=== PATIENT | female | born 1970 | race Caucasian/White ===

== ENCOUNTER 2016-05-30 22:05 | Emergency (ER) | payer OTHER ==
[~2016-05-30] VITALS: Ht 170.2 cm; Wt 104.3 kg
--- NOTE | 2016-05-31 00:04 | ED GENERAL ADULT ---
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 Source: patient Exam Limitations: no limitations Vital Signs & Intake/Output Vital Signs & Intake/Output Vital Signs Date Time Temp Pulse Resp B/P Pulse O2 O2 Flow FiO2 Ox Delivery Rate 05/31 0210 96.0 92 20 151/77 98 Room Air 05/31 0054 100 05/30 2353 96.7 96 20 127/68 100 Room Air 05/30 2215 96.7 106 18 142/84 99 Room Air ED Intake and Output 05/31 0000 05/30 1200 Intake Total 0 Output Total Balance 0 Intake, Oral 0 Patient 230 lb Weight Allergies Coded Allergies: cat dander (05/30/16) mold (05/30/16) Uncoded Allergies: TREES (05/30/16) Reconcile Medications Albuterol Sulfate 2.5 MG/3 ML (0.083 %) VIAL.NEB 1 Vial INH/CARLEE Q4P PRN ASTHMA Alprazolam (Xanax) 0.5 MG TABLET 1 TAB PO Q12 ANXIETY Atropine Sulfate 2 MG/5 ML (0.4 MG/ML) SYRINGE 1 1ML INH Q12 PRN ASTHMA Doxycycline Hyclate (Vibramycin) 100 MG CAPSULE 1 CAP PO BID BRONCHITIS Ipratropium Preston 0.2 MG/ML (0.02 %) SOLUTION 1 Vial INH/CARLEE 4 TIMES/DAY PRN ASTHMA Prednisone 20 MG TABLET 1 TAB PO BID ASTHMA Triage Note: PT TO TRIAGE WITH C/O SOB, CHEST TIGHTNESS, DRY COUGH xWEEK. O2SAT 99% ON RA IN TRIAGE, NO RESP DISTRESS NOTED. HX OF ENVIRONMENTAL ALLERGIES. Triage Nurses Notes Reviewed? yes Onset: Abrupt Duration: day(s): Timing: recent history : No Patient currently breastfeeds: No HPI: 05/31/16 12:14 am 45-year-old female with a history of reactive airway disease presents to the emergency department complaining of difficulty breathing and chest tightness over the past week. The patient states intermittently over the past week she's had some chest tightness and difficulty breathing. She's been some prescribed inhalers in the past but really never had significant relief. She says she has a past medical history of rheumatoid arthritis, and type 2 diabetes,. She has a past surgical history forl hysterectomy,tonsillectomy, carpal tunnel syndrome surgery, and sinus surgery. She denies any drug allergies. She does not smoke. She's not on estrogen. She says that she did have some numbness and tingling in the hands and around the mouth today and this concerned her Past History Travel History Traveled to [place] past 21 day No Medical History Any Pertinent Medical History? see below for history Cardiovascular: hyperlipidemia Musculoskeletal: rheumatoid arthritis Endocrine: diabetes, hypothyroidism Surgical History Surgical History: hysterectomy Psychosocial History What is your primary language Citizen Of [place] Tobacco Use: Never used Family History Hx Contributory? No Review of Systems Review of Systems Constitutional: Denies: fever. EENTM: Reports: no symptoms. Respiratory: Reports: cough, short of breath. Cardiovascular: Denies: chest pain ( she did have some chest tight). GI: Denies: abdominal pain. Genitourinary: Reports: no symptoms. Musculoskeletal: Reports: no symptoms. Skin: Denies: rash. Neurological/Psychological: Reports: no symptoms. Hematologic/Endocrine: Reports: no symptoms. Immunologic/Allergic: Reports: see HPI. Physical Exam Physical Exam General Appearance: well developed/nourished, alert, awake, anxious, mild distress Head: atraumatic, normal appearance Eyes: Bilateral: normal appearance, PERRL, EOMI. Ears, Nose, Throat: normal pharynx, normal ENT inspection Neck: normal inspection, supple Respiratory: chest non-tender, decreased breath sounds, wheezing ( minimal scant wheeze) Cardiovascular: regular rate/rhythm Peripheral Pulses: 4+ radial (R), 4+ radial (L) Gastrointestinal: non-tender Back: normal inspection Extremities: normal inspection, normal range of motion, no edema Neurologic/Psych: no motor/sensory deficits, awake, alert, oriented x 3 Skin: intact, normal color, warm/dry Core Measures ACS in differential dx? No CVA/TIA Diagnosis: No Severe Sepsis Present: No Septic Shock Present: No Progress Differential Diagnoses I considered the following diagnoses in my evaluation of the patient: [ asthma, bronchitis, pneumonia, sepsis, pulmonary embolism] Plan of Care: Orders Procedure Date/time Status TROPONIN LEVEL 05/31 30 Complete D-DIMER 05/31 12 Complete COMPREHENSIVE METABOLIC PANEL 05/31 12 Complete CBC WITHOUT DIFFERENTIAL 05/31 12 Complete EKG 05/31 12 Active Laboratory Tests 05/31/16 0031: Anion Gap 16, Estimated GFR > 60, BUN/Creatinine Ratio 11.0, Glucose 92, Calcium 10.5 H, Total Bilirubin 0.6, AST 34, ALT 63 H, Alkaline Phosphatase 111, Troponin I < 0.01, Total Protein 8.0, Albumin 4.7, Globulin 3.3, Albumin/ Globulin Ratio 1.4, D-Dimer 251 H, CBC w Diff NO MAN DIFF REQ, RBC 4.76, MCV 86.8, MCH 29.1, RDW 13.9, MPV 8.1, Gran % 53.0, Lymphocytes % 39.5, Monocytes % 6.6, Eosinophils % 0.4, Basophils % 0.5, Absolute Granulocytes 5.8, Absolute Lymphocytes 4.3 H, Absolute Monocytes 0.7 H, Absolute Eosinophils 0, Absolute Basophils 0.1, PUBS MCHC 33.5 05/31/16 0016: Troponin I Cancelled Initial ED EKG: NSR Departure Departure Disposition: HOME OR SELF CARE Condition: Stable Clinical Impression Primary Impression: Reactive airway disease Secondary Impressions: Anxiety, Bronchitis Referrals: HOWIE BO,GRACE Gresham (PCP/Family) Departure Forms: Customer Survey General Discharge Information Prescriptions: Current Visit Scripts Doxycycline Hyclate (Vibramycin) 1 CAP PO BID #20 CAP Prednisone 1 TAB PO BID #10 TAB Albuterol Sulfate 1 Vial INH/CARLEE Q4P PRN ASTHMA #50 Vial Atropine Sulfate 1 1ML INH Q12 PRN ASTHMA #1 BOX Alprazolam (Xanax) 1 TAB PO Q12 #6 TAB Ipratropium Preston 1 Vial INH/CARLEE 4 TIMES/DAY PRN ASTHMA #300 ML Comments The patient's symptoms dramatically improved with albuterol and Atrovent nebulizer. she was also given a Xanax. upon reevaluation she had no chest pain or shortness of breath. chest x-ray one showed motion artifact questionable metallic foreign body. chest x-ray #2 - normal exam. no pneumonia. labs are essentially unremarkable, d-dimer was only 251. she tells me that she intermittently has these similar symptoms in the past, he has been coughing, and her symptoms resolved completely after the albuterol and Atrovent treatment. she was instructed to follow-up with her doctor on Wednesday Critical Care Note Critical Care Note Critical Care Time: non-applicable
[2016-05-31 00:47] LABS: ABSOLUTE BASOPHIL COUNT 0.1 /CUMM (0.0-0.2); ABSOLUTE EOSINOPHIL COUNT 0 /CUMM (0.0-0.7); ABSOLUTE GRANULOCYTE CT 5.8 /CUMM (1.4-6.5); ABSOLUTE LYMPH COUNT 4.3 /CUMM (1.2-3.4); ABSOLUTE MONOCYTE COUNT 0.7 /CUMM (0.10-0.60); BASOPHIL % 0.5 % (0.0-2.0); EOSINOPHIL % 0.4 % (0-5); HEMATOCRIT 41.4 % (37-47); MEAN CORPUSCULAR HGB 29.1 PG (27.0-31.0); MEAN CORPUSCULAR HGB CONC 33.5 G/DL (33.0-37.0); MEAN CORPUSCULAR VOLUME 86.8 FL (81.0-99.0); MEAN PLATELET VOLUME 8.1 FL (7.4-10.4); PLATELET COUNT 375 /CUMM (130-400); RBC DISTRIBUTION WIDTH 13.9 % (11.5-14.5); RED BLOOD CELL CT 4.76 /CUMM (4.20-5.40)
--- NOTE | 2016-05-31 01:29 | RADIOLOGY REPORT ---
EXAMINATION: XR PORTABLE CHEST CLINICAL INFORMATION: Shortness of breath. COMPARISON: None TECHNIQUE: Portable AP portable view of the chest was obtained. 1:07 AM FINDINGS: Motion limits study. Lung volume low. Probable cardiomegaly. Metallic device projecting over the left side of chest is likely a pacemaker but is blurred. No gross infiltrate. No large pleural effusion. No significant central pulmonary vascular congestion. IMPRESSION: Limited study by motion. No gross abnormality.
[2016-05-31 02:10] VITALS: BP 151/77
[2016-05-31] MEDS ORDERED: ALBUTEROL2.5 MG/3 M INH/SOL (03:30)
[2016-05-31] MEDS ORDERED: [UNRECOGNIZED DRUG - OTHER] INH (03:30)
[2016-05-31] MEDS ORDERED: PREDNISONE20 M1 PO (03:30)
[2016-05-31] MEDS ORDERED: VIBRAMYCIN100 MG PO (03:30)
[2016-05-31] MEDS ORDERED: XANAX0.5 M1 PO (03:30)
--- NOTE | 2016-05-31 03:37 | RADIOLOGY REPORT ---
EXAMINATION: XR CHEST CLINICAL INFORMATION: Shortness of breath. Prior chest x-ray with metallic foreign body of the chest uncertain significance. COMPARISON: Chest x-ray today 1:07 AM TECHNIQUE: 2 views of the chest were obtained. FINDINGS: The metallic objects seen over the left side of the chest on the chest x-ray of today is not present on this exam. It was therefore outside the patient. The chest exam is normal. Lungs are clear. Heart size is normal. Cardiac and mediastinal contours are normal. No pleural effusion. No pneumothorax. IMPRESSION: Normal chest.
[2016-05-31] MEDS ORDERED: IPRATROPIU0.2 MG/1 M INH/SOL (03:39)
== END 2016-05-31 03:41 ==
LOC: ERH 22:05
PROVIDERS: Emergency Medicine
DX: J45.909 Unspecified asthma, uncomplicated (principal); F41.9 Anxiety disorder, unspecified; R07.89 Other chest pain
CPT/HCPCS: 1263; 1395; 93005; 93010